=== PATIENT | female | born 1955 | race Two or more races ===

== ENCOUNTER 2017-08-16 18:01 | Emergency (ER) | payer MEDICAID ==
--- NOTE | 2017-08-16 18:47 | EDPHY ---
H & P Time Seen by Provider: 08/16/17 18:26 HPI/ROS: This patient complains of 8/10 left calf pain with mild swelling. She explains that 6 days prior to arrival while walking she abruptly had sharp left knee pain that initially the knee pain was more prominent than the leg. However over the past 24-48 hours the leg pain is become more prominent with more leg swelling. She also has ongoing knee pain that is moderate intensity located posteriorly in the knee and medially. Pain worsens with movement or walking. She takes ibuprofen and Percocet with partial relief and notes no other exacerbating factors. ROS: No fevers or chills. No other constitutional symptoms. Pulmonary: No pleuritic pain or shortness of breath. Cardiovascular: No lightheadedness or chest pain. Neuro: Patient reports some tingling in the left sciatic notch region. No other tingling except for mild left foot tingling in her toes when she stands up. No focal numbness or weakness. Musculoskeletal: Patient has mild chronic lumbar back pain that is unchanged. She has chronic left foot pain after a prior fracture and surgery she has mild chronic right knee pain Integumentary: No skin rash. Psychiatric: No complaints 10 point ROS is otherwise negative. Past Medical/Surgical History: Left foot fracture Bilateral carpal tunnel syndrome Chronic musculoskeletal pain treated with Percocets High cholesterol Smoking Status: Current every day smoker Physical Exam: Physical Exam Vital signs are normal. General: Pleasant female No acute distress Eyes: Pupils equal and react to light. Extraocular motions are intact. Lungs: Clear to auscultation bilaterally. No respiratory distress. Cardiac: Regular rate and rhythm with no murmur gallop or rub. Brisk capillary refill is intact throughout. Pulses are 2+ and symmetric in the affected extremity. Extremities: Atraumatic normal except for left lower extremity Left lower extremity: Patient has knee tenderness posteriorly and medially with mild knee effusion. She has left calf mild swelling and tenderness with positive Homans. Skin: No rash or pallor. Neuro: Alert and oriented x3 with no sensorimotor deficits. Initial differential diagnosis: Left lower extremity DVT, sciatica, Meyers cyst , knee effusion, meniscal injury, ligamentous injury, bony a lesion, osteoarthritis Constitutional: Initial Vital Signs Temperature (C) 36.8 C 08/16/17 18:06 Heart Rate 62 01/11/18 18:06 Respiratory Rate 16 08/16/17 18:06 Blood Pressure 163/90 H 08/16/17 18:06 O2 Sat (%) 95 08/16/17 18:06 O2 Delivery Mode Room Air Allergies/Adverse Reactions: No Known Allergies Allergy (Verified 08/16/17 18:10) Home Medications: Medication Instructions Recorded Lidocaine 5% [Lidoderm 5% Patch 1 ea TD DAILY #20 patch 08/16/17 (*)] Percocet 10-325 mg Tablet 08/16/17 Simvastatin 08/16/17 MDM/Departure - MDM Diagnostics: Three-view knee x-ray: Normal by my interpretation Doppler ultrasound leg is negative for DVT per radiologist Imaging: Discussed imaging studies w/ on call pharmacy technician Radiologist (The Doppler ultrasound), I viewed and interpreted images myself (Knee x-ray) ED Course/Re-evaluation: Discussion: Cause of this patient's knee and calf pain or unclear but most consistent with calf muscle strain from since stepping awkwardly and potential meniscal injury versus early gout or other for knee pain. Doubt we ruled out fracture. No evidence on exam of ligamentous laxity or injury. We ruled out DVT with her negative Doppler. I offered to pursue lab workup as part of her diagnostic workup the patient declines blood draw at this time preferring follow up with primary care physician for any ongoing symptoms. Will treat with NSAIDs, neoprene brace and lighted derm patch for any knee pain that prevents sleep at night. I also encouraged her to follow up with orthopedics for any ongoing symptoms. - Depart Disposition: Home, Routine, Self-Care Clinical Impression: Knee pain, acute Qualifiers: Laterality: left Qualified Code(s): M25.562 - Pain in left knee Strain of calf muscle Qualifiers: Encounter type: initial encounter Laterality: left Qualified Code(s): S86.812A - Strain of other muscle(s) and tendon(s) at lower leg level, left leg, initial encounter Condition: Good Instructions: Muscle Strain (ED), Knee Pain (ED) Additional Instructions: Diagnoses: 1. Knee pain 2. Calf strain Plan: Continue ibuprofen Knee brace for comfort as needed Tylenol or Percocet in addition if needed Lidocaine patch at night if needed for pain that prevents sleep Follow up with primary care physician such as Dr. West listed below for any ongoing symptoms. Consider follow-up with Dr. Walter Brush on a-orthopedic physician for any ongoing knee pain despite the treatment plan. Return to the emergency department for any significant worsening despite the treatment plan Prescriptions: Lidocaine 5% [Lidoderm 5% Patch (*)] 1 ea TD DAILY #20 patch Referrals: Ry West MD [[facility] [place] - As per Instructions Ernie Faustin MD [Medical Doctor] - As per Instructions
[2017-08-16 19:41] VITALS: PULSE 62; TEMP 98.2
[2017-08-16 19:50] VITALS: BP 148/93; RESP 18; O2SAT 93
== END 2017-08-16 19:41 | disposition home or self-care (01) ==
LOC: CED 18:01
DX: S86.812A Strain of other muscle(s) and tendon(s) at lower leg level, left leg, initial encounter (principal); X58.XXXA Exposure to other specified factors, initial encounter; F17.200 Nicotine dependence, unspecified, uncomplicated
CPT/HCPCS: 73562-PO; 93971-PO; L1832

== ENCOUNTER 2018-07-08 09:18 | Emergency (ER) | payer MEDICAID ==
[2018-07-08] MEDS ORDERED: NS 1,000 ML IV ONE ×2 (09:50→10:38)
--- NOTE | 2018-07-08 09:56 | EDPHY ---
H & P Stated Complaint: Pt. states constipated x3 days,llq abd pain,vomited x3,denies fever Time Seen by Provider: 07/08/18 09:24 HPI/ROS: Chief Complaint: Abdominal pain, constipation, nausea HPI: A 63-year-old woman with a history of arthritis presenting with worsening abdominal pain for the last week. Patient does take Percocet for her thighs but has not had any for about 5 days. Last bowel movement was small amount of pasty stool 2 days ago. Has had some nausea vomiting. Has had decreased oral intake. Is feeling bloated. Pain began in the left flank and in the left side of her abdomen. No fevers or chills. Has a history of a cholecystectomy in the past. No chest pain or shortness of breath. Pain is about a 7/10. No aggravating or alleviating factors. She has been taking Metamucil which she takes chronically with no relief. ROS: 10 systems were reviewed and were negative except those elements noted in the HPI. PMH: Arthritis, cholecystectomy Social History: No smoking, no alcohol, no recreational drug use Family History: non-contributory Physical Exam: Gen: Awake, Alert, No Distress HEENT: Nose: no rhinorrhea Eyes: PERRLA, EOMI Mouth: Moist mucosa Neck: Supple, no JVD Chest: nontender, lungs clear to auscultation Heart: S1, S2 normal, no murmur Abd: Soft, moderately distended, diffuse tenderness primarily in the left abdomen, no guarding Back: no CVA tenderness, no midline tenderness Ext: no edema, non-tender Skin: no rash Neuro: CN II-XII intact, Sensation grossly intact, Strength 5/5 in bilateral upper and lower extremities - Personal History Current Tetanus Diphtheria and Acellular Pertussis (TDAP): Unsure Tetanus Vaccine Date: within 10 years - Medical/Surgical History Hx Asthma: No Hx Chronic Respiratory Disease: No Hx Diabetes: No Hx Cardiac Disease: No Hx Renal Disease: No Hx Cirrhosis: No Hx Alcoholism: No Hx HIV/AIDS: No Hx Splenectomy or Spleen Trauma: No Other PMH: L foot fx-surg, bilat knee pain, tubal ligation, cholecystectomy - Social History Smoking Status: Former smoker Constitutional: Initial Vital Signs Temperature (C) 36.4 C 07/08/18 09:26 Heart Rate 67 07/08/18 09:26 Respiratory Rate 16 07/08/18 09:26 Blood Pressure 169/99 H 07/08/18 09:26 O2 Sat (%) 96 07/08/18 09:26 O2 Delivery Mode Nasal Cannula O2 (L/minute) 2 Allergies/Adverse Reactions: No Known Allergies Allergy (Verified 07/08/18 09:25) Home Medications: Medication Instructions Recorded Simvastatin 08/16/17 Percocet 5-325 mg Tablet 07/08/18 Tamsulosin HCl 0.4 mg PO DAILY #10 cap 07/08/18 Medical Decision Making - Diagnostics Imaging Results: Imaging Impressions Abdomen CT 07/08/18 09:50 Impression: 1. Obstructing 5.5 mm stone in the mid left ureter with mild pelvocaliectasis. 2. Other nonobstructing stones in both kidneys. 3. Colonic diverticulosis. 4. Lobularity of the left adnexa may represent normal ovarian tissue. Might consider dictated ultrasound for evaluation. Findings and recommendations discussed with Rashad Garner MD at 1121 hour, 07/08/2018. ED Course/Re-evaluation: CT results noted. I have given the patient 15 mg of IV Toradol. She is continue to be hydrated. Will need to check urinalysis to rule out infected stone. Urinalysis is negative for infection. Pain is controlled. Patient has Percocet at home. Will discharge on tamsulosin, urine strainer, follow up with Urology, return for any concerns. - Data Points Laboratory Results: 07/08/18 10:26 POC Sodium 144 mEq/L mEq/L (135-145) POC Potassium 3.7 mEq/L mEq/L (3.3-5.0) POC Chloride 103.0 mEq/L mEq/L (97-110) POC Total CO2 24 mEq/L mEq/L (22-31) POC BUN 15 mg/dL mg/dL (7-23) POC Creatinine 1.0 mg/dL mg/dL (0.6-1.0) POC Glucose 142 mg/dL H mg/dL (70-100) POC Calcium 10.2 mg/dL mg/dL (8.5-10.4) Medications Given: Discontinued Medications Fentanyl (Sublimaze) 50 mcg IVP EDNOW ONE Stop: 07/08/18 11:36 Last Admin: 07/08/18 11:53 Dose: 50 mcg Sodium Chloride (Ns) 1,000 mls @ 0 mls/hr IV ONCE ONE; Wide Open PRN Reason: Protocol Stop: 07/08/18 09:51 Last Admin: 07/08/18 10:23 Dose: 1,000 mls Sodium Chloride (Ns) 1,000 mls @ 0 mls/hr IV ONCE ONE; Wide Open PRN Reason: Protocol Stop: 07/08/18 10:39 Last Admin: 07/08/18 12:00 Dose: 1,000 mls Ketorolac Tromethamine (Toradol) 15 mg IVP EDNOW ONE Stop: 07/08/18 11:22 Last Admin: 07/08/18 11:24 Dose: 15 mg Ondansetron HCl (Zofran) 4 mg IVP EDNOW ONE Stop: 07/08/18 11:04 Last Admin: 07/08/18 11:04 Dose: 4 mg Promethazine HCl (Phenergan) 12.5 mg IVP ONCE ONE Stop: 07/08/18 10:39 Last Admin: 07/08/18 10:45 Dose: 12.5 mg Point of Care Test Results: CBC CBC Collection Date 07/08/18 CBC Collection Time 10:30 WBC 10.6 RBC 5.38 HGB 16.2 HCT 46.9 PLT 317 Neut # 9.2 Neut 86.7 LYMPH # 1.2 LYMPH 11.2 Other WBC # 0.2 Other WBC 2.1 MCV 87.2 Chemistry 07/08/18 10:26 POC Sodium 144 mEq/L mEq/L (135-145) POC Potassium 3.7 mEq/L mEq/L (3.3-5.0) POC Chloride 103.0 mEq/L mEq/L (97-110) POC Total CO2 24 mEq/L mEq/L (22-31) POC BUN 15 mg/dL mg/dL (7-23) POC Creatinine 1.0 mg/dL mg/dL (0.6-1.0) POC Glucose 142 mg/dL H mg/dL (70-100) POC Calcium 10.2 mg/dL mg/dL (8.5-10.4) Urine Dip Collection Date 07/08/18 Collection Time 11:53 Specific [place] (1.002-1.030) 1.015 PH (5.0-7.5) 7.0 Leukocytes (Negative) Negative Nitrites (Negative) Negative Protein (Negative) Negative Glucose (Negative) Negative Ketones (Negative) Trace Urobilnogen (0.2-1.0 EU) 0.2 Bilirubin (Negative) Negative Blood (Negative) Negative Departure - Departure Disposition: Home, Routine, Self-Care Clinical Impression: Kidney stone Condition: Good Instructions: Kidney Stones (ED), How to Strain Your Urine (ED) Additional Instructions: Take ibuprofen, 600 mg every 8 hr. You may alternate with acetaminophen, 1000 mg every 8 hr. You may take your Percocet as prescribed in place of the acetaminophen for severe pain. Take the tamsulosin daily to help you passed a stone. Strain your urine and take any stones to your urology follow-up. Follow up with urologist in 3-4 days for further evaluation. Return to the emergency department for increasing uncontrolled pain, fevers or chills, uncontrolled vomiting, or any other concerns. Referrals: Jalen Bishop MD [Primary Care Provider] - As per Instructions Teddy Harmon MD [Medical Doctor] - As per Instructions Prescriptions: Tamsulosin HCl 0.4 mg PO DAILY #10 cap
[2018-07-08] MEDS ORDERED: IOPAMIDOL (ISOVUE-300) 100 ML BTL ONE (10:01)
[2018-07-08] MEDS ORDERED: PROMETHAZINE HCL 25 MG/ML INJ IVP ONE (10:38)
[2018-07-08] MEDS ORDERED: ONDANSETRON 4 MG/2 ML VIAL ONE (11:01)
[2018-07-08] MEDS ORDERED: ONDANSETRON 4 MG/2 ML VIAL IVP ONE (11:03)
[2018-07-08] MEDS ORDERED: KETOROLAC 15 MG/1 ML SDV IVP ONE (11:21)
[2018-07-08] MEDS ORDERED: fentaNYL 100 MCG/2 ML INJ IVP ONE (11:35)
[2018-07-08 13:41] VITALS: BP 147/72
== END 2018-07-08 13:39 | disposition home or self-care (01) ==
LOC: CED 09:18
DX: N20.0 Calculus of kidney (principal); E86.9 Volume depletion, unspecified
CPT/HCPCS: 74177-PO; 80048-PO; 96374; J1885; J2405; J2550; J3010; Q9967